=== PATIENT | female | born 1975 | race Caucasian/White ===

== ENCOUNTER 2017-03-13 16:53 | Emergency (ER) | payer OTHER ==
[~2017-03-13] VITALS: Ht 157.5 cm; Wt 60.4 kg
[~2017-03-13 16:53] MED LIST: AMOXICILLIN500 M1 PO; ANTIVERT25 MG PO; DEPAKOTE500 MG PO; DILAUDID4 MG PO; FIORICET 50-301 EACH PO; LITHIUM CARBON300 M1 PO; NAPROSYN500 MG PO; NEXIUM40 MG PO; PERCOCET 10/1 TABLET PO; PERCOCET 5/31 TABLET PO; SEROQUEL100 MG PO; TOPAMAX50 MG PO; TRAZODONE HCL150 MG PO; ULTRAM50 MG PO; XANAX0.5 MG PO; ZANTAC150 MG PO; ZOCOR40 MG PO; ZOFRAN4 MG PO; lithium
[2017-03-13 18:45] LABS: EOSINOPHIL (%) 0.7 % (0-5); EOSINOPHIL COUNT 0.1 K/uL (0-0.3); HEMATOCRIT 42.2 % (36.0-46.0); IMMATURE GRANULOCYTE (%) 0.4 % (0.0-0.7); IMMATURE GRANULOCYTE COUNT 0.1 K/uL; INSTRUMENT ABS NEUTROPHIL CT 10.2 K/uL; LYMPHOCYTE COUNT 3.3 K/uL (1.0-2.8); MCH 31.2 PG (29.0-34.0); MCHC 33.6 G/DL (30.0-36.0); MCV 92.7 FL (83-99); MEAN PLAT.VOLUME 10.2 uM^3 (9.5-12.4); MONOCYTE (%) 5.4 % (3-12); MONOCYTE COUNT 0.8 K/uL (0-0.8); NEUTROPHIL (%) 70.7 % (45-76); NEUTROPHIL COUNT 10.2 K/uL (1.8-6.4); PLATELET COUNT 317 K/uL (156-360); RBC DIS.WIDTH-CV 14.5 % (11.8-14.6); RBC DIS.WIDTH-SD 49.4 % (39-53); RED BLOOD COUNT 4.55 M/uL (3.80-5.20); WHITE BLOOD COUNT 14.5 K/uL (4.1-10.2)
[2017-03-13 18:52] LABS: CHLORIDE 107 mEq/L (99-109); POTASSIUM 3.6 mEq/L (3.7-5.4); PROTHROMBIN TIME 11.2 SEC (10.2-12.9); SODIUM 140 mEq/L (136-147)
[2017-03-13 18:54] LABS: GLUCOSE 98 mg/dL (70-99)
[2017-03-13 18:55] LABS: PTT 30.6 SEC (25-37)
[2017-03-13 18:56] LABS: ANION GAP 10 MEQ/L (2-14); TOTAL BILIRUBIN 0.3 mg/dL (0.0-1.0)
[2017-03-13 18:58] LABS: ALKALINE PHOSPHATASE 75 IU/L (3-129); GFR ESTIMATE (CALCULATED) > 59 mL/min/
[2017-03-13 18:59] LABS: UREA NITROGEN (BUN) 7 mg/dL (9-23)
[2017-03-13 19:33] LABS: ADD MIUA? NO; BILIRUBIN NEGATIVE; BLOOD NEGATIVE; COLOR YELLOW ((YELLOW)); GLUCOSE (STRIP) NEGATIVE; KETONES NEGATIVE; LEUKOCYTES NEGATIVE; NITRITE NEGATIVE; PROTEIN (STRIP) NEGATIVE; SPECIFIC GRAVITY 1.017 (1.000-1.030); UROBILINOGEN 0.2 MG/DL (0.2-1.0)
[2017-03-13 20:31] VITALS: BP 122/74
== END 2017-03-13 20:33 | disposition home or self-care (01) ==
LOC: EME 16:53
PROVIDERS: Physician Assistant
DX: R23.3 Spontaneous ecchymoses (principal); F17.200 Nicotine dependence, unspecified, uncomplicated; F41.9 Anxiety disorder, unspecified; F32.9 Major depressive disorder, single episode, unspecified; G89.29 Other chronic pain; Z85.41 Personal history of malignant neoplasm of cervix uteri; Z87.19 Personal history of other diseases of the digestive system
CPT/HCPCS: 80053; 81003; 85025; 85610; 85730; 99281; 99284